=== PATIENT | female | born 1980 | race Caucasian/White ===

== ENCOUNTER 2018-09-10 10:44 | Emergency (ER) | payer OTHER ==
[~2018-09-10] VITALS: Ht 149.9 cm; Wt 64.9 kg
--- NOTE | 2018-09-10 11:06 | PHYS DOC ---
Adult General Chief Complaint Chief Complaint: SORE THROAT HPI HPI Patient is a 38-year-old female who presents with complaint of sore throat and swollen glands started yesterday. Patient indicates that her daughter was recently diagnosed with strep throat and she is worried that she now has strep throat. Patient denies any fever. She states that she has a lot of pain with swallowing. Review of Systems Review of Systems Constitutional: Denies fever or chills [] HENT: Complains of sore throat [] Respiratory: Denies cough or shortness of breath [] Cardiovascular: No additional information not addressed in HPI [] GI: Denies abdominal pain, nausea, vomiting or diarrhea [] Allergies Allergies Allergies Coded Allergies Type Severity Reaction Last Updated Verified clarithromycin Allergy Unknown 09/10/18 Yes Physical Exam Physical Exam Constitutional: Well developed, well nourished, no acute distress, non-toxic appearance. [] HENT: Normocephalic, atraumatic, bilateral external ears normal, there is pharyngeal erythema without accidents, nose normal. [] Neck: Normal range of motion, no tenderness, supple. Anterior cervical lymphadenopathy is present bilaterally, right greater than left. [] Cardiovascular: Regular rate and rhythm [] Lungs & Thorax: Bilateral breath sounds clear to auscultation [] Skin: Warm, dry, no erythema, no rash. [] EKG EKG [] Radiology/Procedures Radiology/Procedures [] Course & Med Decision Making Course & Med Decision Making Pertinent Labs and Imaging studies reviewed. (See chart for details) [] Dragon Disclaimer Dragon Disclaimer This electronic medical record was generated, in whole or in part, using a voice recognition dictation system. Departure Departure: Impression: Primary Impression: Strep throat Disposition: 01 HOME, SELF-CARE Condition: STABLE Referrals: PCP,NO (PCP) Patient Instructions: Strep Throat Scripts Azithromycin (ZITHROMAX) 250 Mg Tablet 1 PKG PO UD for infection, #6 TAB Prov: LILLIAN VERGARA Jr. DO 09/10/18 LILLIAN VERGARA Jr. DO Sep 10, 2018 11:06
[2018-09-10] MEDS ORDERED: AZIT250T PO (11:10)
[2018-09-10 11:20] VITALS: BP 127/88
== END 2018-09-10 11:22 | disposition home or self-care (01) ==
LOC: ER 10:44
DX: J02.0 Streptococcal pharyngitis (principal); B95.5 Unspecified streptococcus as the cause of diseases classified elsewhere; R59.1 Generalized enlarged lymph nodes; Z88.1 Allergy status to other antibiotic agents
CPT/HCPCS: 99283